=== PATIENT | male | born 1960 | race African-American/Black ===

== ENCOUNTER 2021-06-19 21:25 | Emergency (ER) | payer SELFPAY ==
[~2021-06-19] VITALS: Ht 188 cm; Wt 70.0 kg
[2021-06-19 21:34] VITALS: BP 149/88
[2021-06-19 23:56] LABS: CLARITY URINE CLOUDY (CLEAR); COLOR URINE YELLOW (YELLOW); KETONES URINE NEGATIVE (NEGATIVE); LEUKOCYTE ESTERASE URINE 3+ (NEGATIVE); NITRITE URINE POSITIVE (NEGATIVE); OCCULT BLOOD URINE 2+ (NEGATIVE); PH URINE 5.5 (4.5-8.0); PROTEIN URINE 2+ (NEGATIVE); SPECIFIC GRAVITY URINE 1.018 (1.005-1.030)
[2021-06-20] MEDS ORDERED: PYR200 PO (01:59)
[2021-06-20] MEDS ORDERED: ACET-2708 PO (01:59)
[2021-06-20] MEDS ORDERED: DOXY100T28 PO (01:59)
[2021-06-20] MEDS ORDERED: CEFTRIAXONE SODIUM 500 MG/VIAL IM ONE (02:00)
[2021-06-20] MEDS ORDERED: LIDOCAINE HCL 1% 20ML VIAL (Pyxis) INJ INFIL ONE (02:00)
[2021-06-20] MEDS ORDERED: SULF1TAB48 MT (02:20)
== END 2021-06-20 03:13 | disposition home or self-care (01) ==
LOC: ER 21:25
DX: N39.0 Urinary tract infection, site not specified (principal); E11.9 Type 2 diabetes mellitus without complications
CPT/HCPCS: 81003; 87077; 87086; 87186; 96372; 99283; J0696; J3490